=== PATIENT | female | born 1965 | race Caucasian/White ===

== ENCOUNTER 2018-07-10 14:12 | Day surgery (SDC) | payer BC ==
[~2018-07-10] VITALS: Ht 172.7 cm; Wt 61.2 kg
[~2018-07-10 14:12] MED LIST: ASCO10004 PO; BIOT25005 PO; BUDE10.2 INH; GLUC15006 PO; OMEG1CAP6 PO; VALA500T PO
[2018-07-10] MEDS ORDERED: LACTATED RINGERS 1,000 ML IV SCH (14:45)
[2018-07-10 14:48] VITALS: BP 120/80
[2018-07-10 15:00] LABS: HCG UR SG 1.011 (1.003-1.030)
[2018-07-10] MEDS ORDERED: BUPIVACAINE/PF-EPI 0.5% 1:200K ONE (19:39)
[2018-07-10] MEDS ORDERED: PROPOFOL 10 MG/ML, 20ML ONE (19:50)
[2018-07-10] MEDS ORDERED: FENTANYL PF 100 MCG/2ML ONE (19:50)
[2018-07-10] MEDS ORDERED: MIDAZOLAM 1 MG/ML, 2ML ONE (19:50)
[2018-07-10] MEDS ORDERED: ONDANSETRON 2MG/ML, 2ML ONE (19:51)
[2018-07-10] MEDS ORDERED: DEXAMETHASONE 4 MG/ML, 1ML ONE ×2 (19:51)
[2018-07-10] MEDS ORDERED: MEPERIDINE/PF 25MG/0.5ML IVPush PRN (20:00)
[2018-07-10] MEDS ORDERED: ONDANSETRON 2MG/ML, 2ML IV PRN (20:00)
[2018-07-10] MEDS ORDERED: PROMETHAZINE 12.5 MG SUPP PR PRN (20:00)
[2018-07-10] MEDS ORDERED: HYDROmorphone 2 MG/ML, 1ML IVPush PRN (20:00)
[2018-07-10] MEDS ORDERED: LABETALOL 5MG/ML, 20ML IV PRN (20:00)
[2018-07-10] MEDS ORDERED: FENTANYL PF 100 MCG/2ML IV PRN (20:00)
[2018-07-10] MEDS ORDERED: PROMETHAZINE 25 MG/ML, 1ML IV PRN (20:00)
[2018-07-10] MEDS ORDERED: hydrALAzine 20 MG/ML, 1ML IV PRN (20:00)
[2018-07-10] MEDS ORDERED: ONDANSETRON ODT 8 MG PO PRN (20:00)
[2018-07-10] MEDS ORDERED: MORPHINE SULFATE 4 MG/ML, 1ML IVPush PRN ×2 (20:00→23:30)
[2018-07-10] MEDS ORDERED: ACETAMINOPHEN 325 MG TABLET PO PRN (20:00)
[2018-07-10] MEDS ORDERED: HALOPERIDOL 5 MG/ML IV PRN (20:00)
[2018-07-10] MEDS ORDERED: PROMETHAZINE 25 MG/ML, 1ML IM PRN ×2 (20:00)
[2018-07-10] MEDS ORDERED: OXYcodone 5 MG/5 ML ORAL.SOL UDC PO PRN (20:00)
[2018-07-10] MEDS ORDERED: PROMETHAZINE 25 MG SUPP PR PRN (20:00)
[2018-07-10] MEDS ORDERED: BUPIVACAINE/PF-EPI 0.5% 1:200K INFIL ONE (20:34)
[2018-07-10] MEDS ORDERED: ACETAMINOPHEN 650 MG/20.3 ML UDC ONE (21:26)
[2018-07-10] MEDS ORDERED: DIPHENHYDRAMINE 50 MG/ML, 1ML IVPush PRN (23:30)
[2018-07-10] MEDS ORDERED: KETOROLAC 30 MG/1 ML IV PRN (23:30)
[2018-07-10] MEDS ORDERED: HYDROcodone/APAP 5/325 TABLET PO PRN (23:30)
[2018-07-10] MEDS ORDERED: ONDANSETRON 2MG/ML, 2ML IVPush PRN (23:30)
[2018-07-11] MEDS ORDERED: SODIUM CHLORIDE FLUSH 3ML SYRINGE IVF SCH (09:00)
== END 2018-07-10 23:14 | disposition home or self-care (01) ==
LOC: OR 14:12 → 4NOR 22:10 → OR 23:14
PROVIDERS: ATTEND Surgery
DX: R59.0 Localized enlarged lymph nodes (principal); J45.909 Unspecified asthma, uncomplicated; Z88.1 Allergy status to other antibiotic agents
CPT/HCPCS: 38531; 81025; 88305; J1100; J2250; J2405; J2704; J3010; J7120; 88304; G0378

== ENCOUNTER → 2019-08-02 | Outpatient (CLI) | payer BC ==
[~2019-08-02] MED LIST changes: -VALA500T PO; +VALA500T8 PO
== END | disposition home or self-care (01) ==
LOC: CFH 09:13
PROVIDERS: ATTEND Family Medicine
DX: M19.042 Primary osteoarthritis, left hand (principal); M19.041 Primary osteoarthritis, right hand; M25.842 Other specified joint disorders, left hand; M25.841 Other specified joint disorders, right hand; M25.742 Osteophyte, left hand; M25.741 Osteophyte, right hand

== ENCOUNTER → 2019-08-09 | Outpatient (CLI) | payer BC | END | disposition home or self-care (01) | LOC: CFH 08:39 | PROVIDERS: ATTEND Family Medicine | DX: Z12.31 Encounter for screening mammogram for malignant neoplasm of breast (principal); M85.88 Other specified disorders of bone density and structure, other site; N95.1 Menopausal and female climacteric states | CPT/HCPCS: 77063; 77067; 77080 ==

== ENCOUNTER 2020-06-12 07:59 | Outpatient (CLI) | payer BC ==
[~2020-06-12 07:59] MED LIST changes: +ASCO100018 PO; -ASCO10004 PO
== END 2020-06-12 23:59 | disposition home or self-care (01) ==
LOC: CFH 07:59
PROVIDERS: ATTEND Nurse Practitioner Family
DX: Z12.2 Encounter for screening for malignant neoplasm of respiratory organs (principal); R91.1 Solitary pulmonary nodule; Z87.891 Personal history of nicotine dependence
CPT/HCPCS: 71271